=== PATIENT | male | born 1990 | race Caucasian/White ===

== ENCOUNTER → 2018-12-31 | Outpatient (CLI) | payer SELFPAY ==
[~2018-12-31] MED LIST: CEPH500 PO; HYDACE5 PO
== END ==
LOC: LAB 15:00 → LAB SHORT 15:00
DX: J02.9 Acute pharyngitis, unspecified (principal)
CPT/HCPCS: 87081

== ENCOUNTER 2020-01-16 11:01 | Day surgery (SDC) | payer OTHER ==
[~2020-01-16] VITALS: Ht 198.1 cm; Wt 166.3 kg
[~2020-01-16 11:01] MED LIST changes: +Diclofenac Pota50 MG
--- NOTE | 2020-01-16 12:55 | NUR ---
01/16/20 1255 Naima Gracia PT MOVING POST ITUBATION, IV OUT. WNL. REPLACEMENT IV PLACED BY MAC. IN LEFT AC.
--- NOTE | 2020-01-16 14:21 | NUR ---
01/16/20 1421 Shayla Armstrong PT VOMITTED X1 YELLOW COLORED FLUID INTO EMESIS BAG. RN TREATED WITH IV REGLAN PER DR'S ORDERS. VSS. COOL WASH CLOTH ON FOREHEAD.
== END 2020-01-16 15:20 | disposition home or self-care (01) ==
LOC: ORSCSDS 11:01
PROVIDERS: Podiatrist Foot & Ankle Surgery
PROC: 0SGH04Z Fusion of Right Tarsal Joint with Internal Fixation Device, Open Approach (ICD-10-PCS; principal; 2020-01-16 12:30)
PROC: 0QBL0ZZ Excision of Right Tarsal, Open Approach (ICD-10-PCS; principal; 2020-01-16 12:30)
DX: Q66.89 Other specified congenital deformities of feet (principal); E66.01 Morbid (severe) obesity due to excess calories; Z68.41 Body mass index [BMI] 40.0-44.9, adult
CPT/HCPCS: C1713; J0171; J0690; J1100; J1885; J2250; J2405; J2704; J2765; J3010; J7120

== ENCOUNTER → 2020-07-02 | Outpatient (CLI) | payer OTHER ==
[2020-07-04 15:52] LABS: CORONAVIRUS (COVID19) CSH-NRL Positive (Negative)
== END | disposition home or self-care (01) ==
LOC: PLD 17:07
PROVIDERS: Chiropractor
DX: U07.1 COVID-19 (principal)
CPT/HCPCS: U0003

== ENCOUNTER 2022-05-30 08:09 | Day surgery (SDC) | payer OTHER ==
[~2022-05-30] VITALS: Ht 198.1 cm; Wt 173.4 kg
--- NOTE | 2022-05-30 09:00 | NUR ---
05/30/22 0900 Shayla Armstrong SCOPALAMINE PATCH PLACED BEHIND LEFT EAR. PT EDUACTION TO LEAVE THE PATCH IN PLACE FOR 3 DAYS AND TO WASH HANDS AFTER DISPOSING OF PATCH.
--- NOTE | 2022-05-30 09:51 | NUR ---
05/30/22 0951 Mary Ray PILLOW UNDER HEAD, ARMS SECURED ONP ADDED ARM BOARDS, LEFT HIP BUMP PLACED BY MI.BB, RIGHT LEG SECURED.
--- NOTE | 2022-05-30 11:21 | NUR ---
05/30/22 1121 Miguel Suarez PT TENDS TO OBSTRUCT WHEN FALLINFG ASLEEP, PILLOW REMOVED PT BREATHE BETTER, O2 SAT MAINTAINS AT 97% RA.
--- NOTE | 2022-05-30 11:57 | NUR ---
05/30/22 1157 Miguel Suarez PT C/O N/V, DID VOMIT VERY SMALL LIGHT VOMIT, IV WITH REGLAN INFUSING, LEG ELEVATED, COLD TOWEL TO BACK OF NECK, PT SITTING ON CHAIR CALM, PT C/O 6/10 PAIN TO LEFT FOOT, WILL GIVE SOME CRACKERS TO TRY IF PT CAN TOLERATE PO MEDS.
== END 2022-05-30 12:30 | disposition home or self-care (01) ==
LOC: ORSCSDS 08:09
PROVIDERS: Podiatrist Foot & Ankle Surgery
PROC: 0QBP0ZZ Excision of Left Metatarsal, Open Approach (ICD-10-PCS; principal; 2022-05-30 09:15)
PROC: 0SGJ04Z Fusion of Left Tarsal Joint with Internal Fixation Device, Open Approach (ICD-10-PCS; principal; 2022-05-30 09:15)
DX: Q66.89 Other specified congenital deformities of feet (principal); K21.9 Gastro-esophageal reflux disease without esophagitis; E66.01 Morbid (severe) obesity due to excess calories; Z68.41 Body mass index [BMI] 40.0-44.9, adult
CPT/HCPCS: A9270; C1713; C1734; C1769; J0171; J0690; J1100; J1885; J2250; J2405; J2704; J2765; J2795; J3010; J7120

== ENCOUNTER → 2024-05-25 | Outpatient (CLI) | payer OTHER ==
[2024-05-25 12:36] LABS: BASOPHILS ABSOLUTE AUTO 0.02 K/mm3 (0.00-0.23); BASOPHILS PERCENT AUTO 0 % (0-2); EOSINOPHILS ABSOLUTE AUTO 0.13 K/mm3 (0.00-0.68); EOSINOPHILS PERCENT AUTO 2 % (0-6); Hematocrit 46.9 % (37.0-53.0); IMMATURE GRAN ABSOLUTE AUTO 0.01 K/mm3 (0.00-0.10); IMMATURE GRAN PERCENT AUTO 0 % (0-1); LYMPHOCYTES ABSOLUTE AUTO 2.09 K/mm3 (0.84-5.20); LYMPHOCYTES PERCENT AUTO 30 % (21-46); MONOCYTES ABSOLUTE AUTO 0.37 K/mm3 (0.16-1.47); MONOCYTES PERCENT AUTO 5 % (4-13); Mean Corpuscular HGB 28.2 pg (26.0-34.0); Mean Corpuscular HGB Conc 34.1 g/dL (31.5-36.5); Mean Corpuscular Volume 83 fL (80-100); NEUTROPHILS ABSOLUTE AUTO 4.42 K/mm3 (1.96-9.15); NEUTROPHILS PERCENT AUTO 63 % (41-73); Platelet Count 276 K/mm3 (150-400); RDW Coefficient Variation 13.2 % (11.7-14.2); RDW Standard Deviation 39.5 fL (35.1-46.3); Red Blood Cell Count 5.67 M/mm3 (4.30-5.90); White Blood Cell Count 7.04 K/mm3 (4.00-11.30)
[2024-05-25 12:42] LABS: Bun/Creatinine Ratio 18.6 (12.0-20.0); Calcium, Blood 8.9 mg/dL (8.5-10.1); Creatinine, Blood 1.02 mg/dL (0.60-1.20); Potassium, Blood 4.2 mmol/L (3.5-5.5)
== END ==
LOC: LAB 12:33 → LAB SHORT 12:33
PROVIDERS: Physician Assistant Medical
DX: R07.9 Chest pain, unspecified (principal); R03.0 Elevated blood-pressure reading, without diagnosis of hypertension
CPT/HCPCS: 80048; 84484; 85025; 85379